=== PATIENT | male | born 1970 ===

== ENCOUNTER → 2017-04-01 | Outpatient (CLI) | payer SELFPAY ==
--- NOTE | 2017-04-01 18:18 | RAD ---
Left wrist, 4 views, 04/01/2017: History: Fall, contusion No fracture or dislocation is identified. The soft tissues are unremarkable. IMPRESSION: No acute left wrist abnormality is detected.
== END | disposition home or self-care (01) ==
LOC: DXRADRC 14:12
PROVIDERS: ATTEND General Practice
DX: S60.212D Contusion of left wrist, subsequent encounter (principal); X58.XXXD Exposure to other specified factors, subsequent encounter
CPT/HCPCS: 73110